=== PATIENT | female | born 1965 | race Two or more races ===

== ENCOUNTER 2021-05-03 10:21 | Emergency (ER) | payer MEDICAID ==
[~2021-05-03] VITALS: Ht 152.4 cm; Wt 60.3 kg
[2021-05-03 11:27] LABS: Urine Bacteria FEW /hpf (None Seen); Urine Blood Negative /uL (Negative); Urine Specific Gravity 1.003 (1.001-1.035); Urine WBC 1 /hpf (0 - 5)
[2021-05-03 11:29] VITALS: BP 159/83
[2021-05-03] MEDS ORDERED: KETOROLAC TROMETH 60MG/2ML VIAL IM ONE (11:45)
== END 2021-05-03 12:14 | disposition home or self-care (01) ==
LOC: ER 10:21
DX: M54.41 Lumbago with sciatica, right side (principal)
CPT/HCPCS: 81001; 96372; 99283; J1885